=== PATIENT | male | born 1965 | race American Indian/Alaskan Native ===

== ENCOUNTER 2020-07-18 05:56 | Day surgery (SDC) | payer OTHER ==
[2020-07-18] MEDS ORDERED: MIDAZOLAM 2 MG/2 ML INJ IV NR (06:00)
[2020-07-18] MEDS ORDERED: LACTATED RINGERS 1,000 ML IV SCH (06:00)
[2020-07-18] MEDS ORDERED: BACTERIOSTATIC SODIUM CHLORIDE 0.9% 30 ML VIAL INFILTRATI ONE (06:19)
[2020-07-18] MEDS ORDERED: SODIUM CHLORIDE 0.9% 500 ML 500 ML ONE (07:39)
[2020-07-18] MEDS ORDERED: WATER FOR IRRIG STERILE 2000 ML IR ONE (07:41)
[2020-07-18] MEDS ORDERED: SODIUM CHLORIDE 0.9% 500 ML IVPB IRRIGATION ONE (07:41)
[2020-07-18] MEDS ORDERED: WATER FOR IRRIG STERILE 1,500 ML BOTTLE IR ONE (07:42)
--- NOTE | 2020-07-18 07:58 | Anesthesia Consultation ---
Anesthesia Consult and Med Hx Date of service: 07/18/20 - Airway Anesthetic Teeth Evaluation: Good ROM Head & Neck: Adequate Mental/Hyoid Distance: Adequate Mallampati Class: Class III Intubation Access Assessment: Possibly Difficult - Pulmonary Exam CTA: Yes - Cardiac Exam Cardiac Exam: RRR - Pre-Operative Health Status ASA Pre-Surgery Classification: ASA2 Proposed Anesthetic Plan: General - Pulmonary Hx Smoking: No Hx Respiratory Symptoms: No Hx Sleep Apnea: No (STEPHANIE PRE SCREEN LOW RISK) - Cardiovascular System Hx Hypertension: No Hx Heart Attack/AMI: No Hx Percutaneous Transluminal Coronary Angioplasty (PTCA): No - Central Nervous System CVA: No - Endocrine Hx Renal Disease: No Hx Liver Disease: No Hx Insulin Dependent Diabetes: No Hx Non-Insulin Dependent Diabetes: No Hx Thyroid Disease: No - Other Systems Hx Alcohol Use: Yes (1 BOTTLE LIQUOR EVERY SAT & SUN) Hx Obesity: No
[2020-07-18] MEDS ORDERED: fentaNYL 100 MCG/2 ML INJ IV PRN (07:59)
--- NOTE | 2020-07-18 07:59 | Anesthesia Day of Surgery ---
Anesthesia Day of Surgery - Day of Surgery Patient Examined: Yes Patient H&P Reviewed: Yes Patient is NPO: Yes
[2020-07-18] MEDS ORDERED: ceFAZolin/STERILE WATER 2 GM/20 ML SYRINGE IV NR (08:34)
[2020-07-18] MEDS ORDERED: propofoL 200 MG/20 ML VIAL IV ONE (08:54)
[2020-07-18] MEDS ORDERED: ONDANSETRON 4 MG/2 ML INJ ONE ×2 (08:54→09:15)
[2020-07-18] MEDS ORDERED: fentaNYL 100 MCG/2 ML INJ ONE (08:54)
[2020-07-18] MEDS ORDERED: MIDAZOLAM 2 MG/2 ML INJ ONE (08:54)
[2020-07-18] MEDS ORDERED: KETOROLAC 30 MG/1 ML INJ ONE (09:15)
--- NOTE | 2020-07-18 09:34 | Post Operative Note ---
Date of procedure: 07/18/20 Pre-op diagnosis: bph Post-op diagnosis: same Findings: triobar Procedure: christie Surgeon: LOBITO PHILLIPS Estimated blood loss: none Pathology: none Condition: stable Disposition: PACU
--- NOTE | 2020-07-18 09:35 | Discharge Summary ---
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
[2020-07-18 10:02] VITALS: BP 147/93
--- NOTE | 2020-07-18 11:14 | Operative Report ---
PREOPERATIVE DIAGNOSES: Urinary retention, benign prostatic hypertrophy, trilobar hypertrophy. POSTOPERATIVE DIAGNOSES: Urinary retention, benign prostatic hypertrophy, trilobar hypertrophy. PROCEDURES: Cystoscopy, Rezum therapy. SURGEON: Bart Zelaya MD. ANESTHESIA: General. FINDINGS: The patient is a gentleman who is 55, did not want to have major surgery and now presents with retention, difficulty voiding, and bladder outlet obstruction. He has a prominent trilobar hypertrophy. DESCRIPTION OF PROCEDURE: The patient was brought to the operating table. Following induction of anesthesia, placed in lithotomy position, prepped and draped in usual sterile fashion. Cystourethroscopy showed this large middle lobe, but it was really in the center. The bladder was mildly trabeculated. The Rezum device was calibrated and then placed. One treatment in the middle lobe, two on each lateral lobe. The patient tolerated the procedure well. No significant complications. A coude catheter was placed, brought to recovery in stable condition. JOB# [id number] RENETTA/CECILLE
--- NOTE | 2020-07-18 12:31 | Post Anesthesia Evaluation ---
- Post Anesthesia Evaluation Patient Participated: Yes Airway Patent: Yes Stable Respiratory Function: Yes Nausea/Vomiting: No Temp > 96.8F: Yes Pain Manageable: Yes Adequeate Hydration: Yes Anesthesia Complications: No
== END 2020-07-18 10:35 | disposition home or self-care (01) ==
LOC: OR 05:56
PROVIDERS: ATTEND Urology
DX: R33.8 Other retention of urine (principal); Z79.899 Other long term (current) drug therapy; Z98.41 Cataract extraction status, right eye; Z72.89 Other problems related to lifestyle; Z98.890 Other specified postprocedural states
CPT/HCPCS: 53854; A4217; J0690; J1885; J2250; J2405; J2704; J3010; J7040; J7120

== ENCOUNTER 2021-12-13 10:19 | Observation (INO) | payer OTHER ==
[2021-12-04 10:00] LABS: Hematocrit 44.3 % (35.5-45.6); Hemoglobin 14.6 gm/dl (11.8-15.2); Mean Corpuscular HGB Conc 33 % (32-34); Mean Corpuscular Volume 91 fl (84-94); Platelet Count 180 K/mm3 (140-440); Red Blood Count 4.89 M/mm3 (3.65-5.03); Red Cell Distribution Width 14.6 % (13.2-15.2)
[2021-12-04 10:07] LABS: Alanine Aminotransferase 15 units/L (7-56); Albumin 4.3 g/dL (3.9-5); BUN/Creatinine Ratio 17; Blood Urea Nitrogen 15 mg/dL (9-20); Calcium 9.2 mg/dL (8.4-10.2); Hemolysis Index 45
--- NOTE | 2021-12-04 10:36 | Anesthesia Consultation ---
Anesthesia Consult and Med Hx - Airway Anesthetic Teeth Evaluation: Good ROM Head & Neck: Adequate Mental/Hyoid Distance: Adequate Mallampati Class: Class III Intubation Access Assessment: Possibly Difficult - Pulmonary Exam CTA: Yes - Cardiac Exam Cardiac Exam: RRR - Pre-Operative Health Status ASA Pre-Surgery Classification: ASA1 Proposed Anesthetic Plan: General - Pulmonary Hx Smoking: No Hx Respiratory Symptoms: No - Cardiovascular System Hx Hypertension: No Hx Heart Attack/AMI: No - Central Nervous System CVA: No - Endocrine Hx Renal Disease: No Hx Liver Disease: No Hx Insulin Dependent Diabetes: No Hx Non-Insulin Dependent Diabetes: No Hx Thyroid Disease: No - Other Systems Hx Obesity: No - Additional Comments Anesthesia Medical History Comments: No hx anesthetic complications.
[~2021-12-13 10:19] MED LIST: MIDAZOLAM 2 MG/2 ML INJ IV NR
[2021-12-13] MEDS ORDERED: HYDROmorphone 1 MG/1 ML INJ IV PRN (10:58)
--- NOTE | 2021-12-13 10:59 | Anesthesia Day of Surgery ---
Anesthesia Day of Surgery - Day of Surgery Patient Examined: Yes Patient H&P Reviewed: Yes Patient is NPO: Yes
[2021-12-13] MEDS ORDERED: ONDANSETRON 4 MG/2 ML INJ IV PRN ×2 (11:00→15:00)
[2021-12-13] MEDS: LACTATED RINGERS 1,000 ML IV SCH ×2 (11:15→18:30)
[2021-12-13] MEDS ORDERED: ceFAZolin/STERILE WATER 2 GM/20 ML SYRINGE IV NR (12:00)
[2021-12-13] MEDS ORDERED: ceFAZolin/Water 2 GM/20 ML 2 GM/20 ML SYRINGE IV ONE (12:13)
[2021-12-13] MEDS ORDERED: HYDROmorphone 1 MG/1 ML INJ ONE (12:20)
[2021-12-13] MEDS ORDERED: propofoL 200 MG/20 ML VIAL IV ONE (12:21)
[2021-12-13] MEDS ORDERED: MANNITOL/SORBITOL SOLUTION 3,000 ML IRRIG.SOLN IR ONE ×3 (12:45)
[2021-12-13] MEDS ORDERED: WATER FOR IRRIG STERILE 2000 ML IR ONE ×3 (12:45)
[2021-12-13] MEDS ORDERED: SODIUM CHLORIDE 0.9% IRRIG SOLN 2000 ML IR ONE (13:40)
[2021-12-13] MEDS ORDERED: LIDOCAINE MPF (2%) 20 MG/1 ML VIAL 5 ML ONE (13:50)
[2021-12-13] MEDS ORDERED: ONDANSETRON 4 MG/2 ML INJ ONE (13:50)
--- NOTE | 2021-12-13 14:01 | Post Operative Note ---
Pre-op diagnosis: AUR bph Post-op diagnosis: same Findings: middle lobe Procedure: turp Anesthesia: GETA Surgeon: LOBITO PHILLIPS Estimated blood loss: 50-100ml Pathology: list (chips) Specimen disposition: to lab Condition: stable Disposition: PACU
[2021-12-13] MEDS: HYDROmorphone 1 MG/1 ML INJ IV PRN ×4 (14:04→14:50)
[2021-12-13] MEDS ORDERED: ACETAMINOPHEN 325 MG TAB PO PRN (14:30)
--- NOTE | 2021-12-13 14:49 | Operative Report ---
DATE OF SURGERY: 12/13/2021 PREOPERATIVE DIAGNOSES: Recurrent urinary retention. POSTOPERATIVE DIAGNOSES: Recurrent urinary retention. PROCEDURES: Cystoscopy, transurethral resection of prostate. SURGEON: Dr. Bart Zelaya. ANESTHESIA: General. FINDINGS: This is a gentleman who had urinary retention. He had a Rezum therapy and he continues to have retention on and off over the last years. We tried to avoid any surgical procedures that would involve any cutting, but at this point, he has been intermittent catheterizing for quite some time. He has a large middle lobe. We could not see the orifices. He has had cystoscopy by Dr. Logan and by myself. DESCRIPTION OF PROCEDURE: The patient was brought to the operating room and placed on the operating table. Following induction of anesthesia, placed in lithotomy position, prepped, and draped in usual sterile fashion. A very elevated bladder neck with the middle lobe. Resection of the middle lobe was done without difficulty. The lateral lobes were not that long, but there was some apical tissue that was resected carefully not to make him incontinent. Once all the chips were evacuated out, a 3-way 20-Pakistani catheter was placed. Minimal blood loss 50-75 mL. The patient tolerated the procedure well. A cystogram at the end of the case showed the catheter in good excellent position. The irrigation was clear. We made sure to resect the middle lobe. We saw the trigone orifices were intact once the middle lobe was taken down. He was brought to recovery in stable condition. TID: [id number] RECEIPT: [id number] RENETTA/KALYANI/SHELLY
[2021-12-13] MEDS ORDERED: NALOXONE 0.4 MG/1 ML INJ IV PRN (15:00)
[2021-12-13] MEDS ORDERED: HYDROcodone/ACETAMINOPHEN 5-325 MG TAB PO PRN (15:00)
[2021-12-13] MEDS ORDERED: D5W/0.45% NACL/KCL 20 MEQ 20 MEQ/1,000 ML BAG IV SCH (15:00)
--- NOTE | 2021-12-13 15:41 | XRay Report ---
2 fluoroscopic images submitted Indication: Intraoperative localization Impression: 2 images of the abdomen/pelvis were submitted for documentation purposes with radiology involvement. Catheter in the urinary bladder with contrast. Please refer to the operative note for complete details. Fluoroscopic time: 0.1 minutes Signer Name: Bk Luna MD Signed: 12/13/2021 3:36 PM Workstation Name: [id number]
--- NOTE | 2021-12-13 16:24 | Post Anesthesia Evaluation ---
- Post Anesthesia Evaluation Patient Participated: Yes Airway Patent: Yes Stable Respiratory Function: Yes Nausea/Vomiting: No Temp > 96.8F: Yes Pain Manageable: Yes Adequeate Hydration: Yes Anesthesia Complications: No Block Receding Appropriately: Not Applicable Patient on Ventilator: No
[2021-12-13] MEDS ORDERED: TAMSULOSIN 0.4 MG CAP PO SCH (18:00)
[2021-12-13] MEDS ORDERED: ZOLPIDEM 5 MG TAB PO PRN (22:00)
[2021-12-13] MEDS: ceFAZolin/NS 1 GM/50 ML 1 GM/50 ML BAG IV SCH (22:05)
[2021-12-14] MEDS: SODIUM CHLORIDE 0.9% IRRIG SOLN 2000 ML IR SCH ×6 (00:48→09:03)
[2021-12-14] MEDS: ceFAZolin/NS 1 GM/50 ML 1 GM/50 ML BAG IV SCH ×2 (05:11→12:06)
--- NOTE | 2021-12-14 05:54 | Consultation ---
History of Present Illness - Reason for Consult Consult date: 12/13/21 Medical management Requesting physician: LOBITO PHILLIPS - History of Present Illness S/p TURP. Patient doing well postop. No fever or chills. Past History Past Medical History: hypertension Past Surgical History: TURP Social history: lives with family, full code Family history: hypertension Medications and Allergies Allergies Allergy/AdvReac Type Severity Reaction Status Date / Time No Known Allergies Allergy Verified 07/17/20 10:51 Home Medications Medication Instructions Recorded Confirmed Last Taken Type No Known Home Medications [No 11/29/21 11/29/21 Unknown History Reported Home Medications] Active Meds: Active Medications Acetaminophen (Acetaminophen 325 Mg Tab) 650 mg PO Q4H PRN PRN Reason: Pain, Mild (1-3)/Fever > 100.5 Hydrocodone Bitart/Acetaminophen (Hydrocodone/Acetaminophen 5-325 Mg Tab) 2 each PO Q4H PRN PRN Reason: Pain, Moderate (4-6) Last Admin: 12/13/21 22:10 Dose: 2 each Cefazolin Sodium (Ancef/Ns 1 Gm/50 Ml) 1 gm in 50 mls @ 100 mls/hr IV Q8H THERESE; Protocol Stop: 12/14/21 21:29 Last Admin: 12/14/21 05:11 Dose: 100 mls/hr Potassium Chloride/Dextrose/Sod Cl (D5w/0.45% Nacl/Kcl 20 Meq) 20 meq in 1,000 mls @ 125 mls/hr IV DIRECT THERESE Last Admin: 12/14/21 02:20 Dose: 125 mls/hr Naloxone HCl (Naloxone 0.4 Mg/1 Ml Inj) 0.1 mg IV Q2MIN PRN PRN Reason: Res Rate </= 8 or 02 SAT < 92% Ondansetron HCl (Ondansetron 4 Mg/2 Ml Inj) 4 mg IV Q8H PRN PRN Reason: Nausea And Vomiting Sodium Chloride (Sodium Chloride 0.9% Irrig Soln 2000 Ml) 2,000 ml IR DIRECT THERESE Last Admin: 12/14/21 04:45 Dose: 2,000 ml Tamsulosin HCl (Tamsulosin 0.4 Mg Cap) 0.8 mg PO QPM THERESE Last Admin: 12/13/21 18:30 Dose: 0.8 mg Zolpidem Tartrate (Zolpidem 5 Mg Tab) 5 mg PO QHS PRN PRN Reason: Sleep Exam - Constitutional Vitals: Temp Pulse Resp BP Pulse Ox 97.6 F 83 16 123/80 98 12/14/21 03:10 12/14/21 03:10 12/14/21 03:10 12/14/21 03:10 12/14/21 03:10 General appearance: Present: no acute distress, well-nourished - EENT Eyes: Present: PERRL ENT: hearing intact, clear oral mucosa - Neck Neck: Present: supple, normal ROM - Respiratory Respiratory effort: normal Respiratory: bilateral: CTA - Cardiovascular Heart rate: 78 Rhythm: regular Heart Sounds: Present: S1 & S2. Absent: rub, click - Extremities Extremities: pulses symmetrical, No edema Peripheral Pulses: within normal limits - Abdominal General gastrointestinal: Present: soft, non-tender, non-distended, normal bowel sounds Male genitourinary: Present: normal - Integumentary Integumentary: Present: clear, warm, dry - Musculoskeletal Musculoskeletal: gait normal, strength equal bilaterally - Psychiatric Psychiatric: appropriate mood/affect, intact judgment & insight - Neurologic Neurologic: CNII-XII intact, moves all extremities Results - Labs CBC & Chem 7: 12/04/21 00:01 12/04/21 00:01 Assessment and Plan - Patient Problems (1) S/P TURP Current Visit: Yes Status: Acute Plan to address problem: Postop patient doing well (2) HTN (hypertension) Current Visit: Yes Status: Chronic Qualifiers: Hypertension type: primary hypertension Qualified Code(s): I10 - Essential (primary) hypertension Plan to address problem: Continue antihypertensives (3) DVT prophylaxis Current Visit: Yes Status: Acute Plan to address problem: On SCDs and GI prophylaxis
[2021-12-14 06:38] LABS: Basophils % (Auto) 0.4 % (0.0-1.8); Eosinophils # (Auto) 0.3 K/mm3 (0.0-0.4); Eosinophils % (Auto) 4.3 % (0.0-4.3); Hematocrit 39.1 % (35.5-45.6); Hemoglobin 12.7 gm/dl (11.8-15.2); Lymphocytes # (Auto) 1.3 K/mm3 (1.2-5.4); Lymphocytes % (Auto) 19.2 % (13.4-35.0); Mean Corpuscular HGB Conc 33 % (32-34); Mean Corpuscular Volume 92 fl (84-94); Monocytes # (Auto) 0.6 K/mm3 (0.0-0.8); Monocytes % (Auto) 9.1 % (0.0-7.3); Platelet Count 105 K/mm3 (140-440); Red Blood Count 4.27 M/mm3 (3.65-5.03); Red Cell Distribution Width 14.4 % (13.2-15.2)
[2021-12-14 06:57] LABS: BUN/Creatinine Ratio 7; Blood Urea Nitrogen 7 mg/dL (9-20); Calcium 8.1 mg/dL (8.4-10.2); Hemolysis Index 6
--- NOTE | 2021-12-14 08:46 | Progress Note ---
Assessment and Plan stop arabella figueredo with cath Subjective Date of service: 12/14/21 Objective - Constitutional Vitals: Vital Signs - 12hr 12/13/21 12/13/21 12/13/21 22:00 22:39 23:15 Temperature 97.8 F Pulse Rate 91 H 84 Respiratory 16 Rate Blood Pressure 152/83 O2 Sat by Pulse 97 97 Oximetry 12/14/21 12/14/21 03:10 07:56 Temperature 97.6 F 97.9 F Pulse Rate 83 89 Respiratory 16 16 Rate Blood Pressure 123/80 126/102 O2 Sat by Pulse 98 100 Oximetry General appearance: Present: no acute distress - Neck Neck: supple - Respiratory Respiratory effort: normal Extremities: no ischemia - Gastrointestinal General gastrointestinal: Present: soft, non-tender - Labs CBC & Chem 7: 12/14/21 06:12 12/14/21 06:12 Labs: Abnormal lab results 12/14/21 12/14/21 Range/Units 06:12 06:12 Plt Count 105 L (140-440) K/mm3 Grand % (Auto) 9.1 H (0.0-7.3) % BUN 7 L (9-20) mg/dL Glucose 128 H (75-100) mg/dL Calcium 8.1 L (8.4-10.2) mg/dL Medications & Allergies - Medications Allergies/Adverse Reactions: Allergies No Known Allergies Allergy (Verified 12/14/21 08:01) Home Medications: Home Medications Medication Instructions Recorded Confirmed Last Taken Type No Known Home Medications [No 11/29/21 12/14/21 Unknown History Reported Home Medications] Active Medications: Generic Name Dose Route Start Last Admin Trade Name Mookie PRN Reason Stop Dose Admin Acetaminophen 650 mg 12/13/21 14:30 Acetaminophen 325 Mg Tab PO Q4H PRN Pain, Mild (1-3)/Fever > 100.5 Hydrocodone Bitart/Acetaminophen 2 each 12/13/21 15:00 12/13/21 22:10 Hydrocodone/Acetaminophen 5-325 Mg Tab PO 2 each Q4H PRN Administration Pain, Moderate (4-6) Cefazolin Sodium 1 gm in 50 mls @ 100 mls/hr 12/13/21 21:00 12/14/21 05:11 Ancef/Ns 1 Gm/50 Ml IV 12/14/21 21:29 100 mls/hr Q8H THERESE Administration Protocol Potassium Chloride/Dextrose/Sod Cl 20 meq in 1,000 mls @ 125 mls/hr 12/13/21 15:00 12/14/21 02:20 D5w/0.45% Nacl/Kcl 20 Meq IV 125 mls/hr DIRECT THERESE Administration Naloxone HCl 0.1 mg 12/13/21 15:00 Naloxone 0.4 Mg/1 Ml Inj IV Q2MIN PRN Res Rate </= 8 or 02 SAT < 92% Ondansetron HCl 4 mg 12/13/21 15:00 Ondansetron 4 Mg/2 Ml Inj IV Q8H PRN Nausea And Vomiting Sodium Chloride 2,000 ml 12/13/21 15:00 12/14/21 06:42 Sodium Chloride 0.9% Irrig Soln 2000 Ml IR 2,000 ml DIRECT THERESE Administration Tamsulosin HCl 0.8 mg 12/13/21 18:00 12/13/21 18:30 Tamsulosin 0.4 Mg Cap PO 0.8 mg QPM THERESE Administration Zolpidem Tartrate 5 mg 12/13/21 22:00 Zolpidem 5 Mg Tab PO QHS PRN Sleep
--- NOTE | 2021-12-14 08:48 | Discharge Summary ---
Short Stay Discharge Plan Activity: other (no strianing ) Weight Bearing Status: Full Weight Bearing Diet: low fat, low cholesterol, low salt Special Instructions: other (teach bell care ) Follow up with: OSCAR MAYER MD [Primary Care Provider] - 7 Days LOBITO PHILLIPS MD [Staff Physician] - 7 Days
[2021-12-14 12:18] VITALS: BP 149/85
== END 2021-12-14 14:06 | disposition home or self-care (01) ==
LOC: OR 10:19 → 3A 14:01 → 4A 17:14
PROVIDERS: ADMIT Urology; ATTEND Urology
DX: R33.8 Other retention of urine (principal); Z20.822 Contact with and (suspected) exposure to COVID-19; I10 Essential (primary) hypertension; N40.1 Benign prostatic hyperplasia with lower urinary tract symptoms; A01.00 Typhoid fever, unspecified; Z79.899 Other long term (current) drug therapy; Z98.890 Other specified postprocedural states
CPT/HCPCS: 36415; 52601; 74018; 80048; 80053; 85025; 85027; 86850; 86900; 86901; 88305; 96365; 96366; C1769; G0378; J0690; J1170; J2704; J3480; J3490; J7120; Q9967; U0003; J2405